=== PATIENT | female | born 1995 | race Caucasian/White ===

== ENCOUNTER 2018-08-19 11:39 | Inpatient (IN) | payer BC ==
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
[2018-08-19 12:18] LABS: PLATELET COUNT 265 10^3/uL (150-400)
--- NOTE | 2018-08-19 15:04 | PDCONSULT ---
Photographic Equipment Technician Note: MEDICINE H&P NOTE Chief Complaint: suicidal ideation History of Present Illness: 22yo F with bipolar disorder presented to ED with suicidal ideation. She is having thoughts of cutting herself. She has become more depressed after tapering off her cymbalta. She is also on lithium and lamictal. No hallucinations. She reports being prescribed amoxicillin for ? right ear vs sinus infection 6-7 days ago, which she has been taking. She was also having mild productive cough and sore throat but these symptoms have improved. No fevers or chills. Otherwise, she is feeling well with no shortness of breath. In the ED, she was placed on an M1 hold. Past Medical History: bipolar disorder, polysubstance use Past Surgical History: none Medications: Please refer to EMR. Allergies: none Social History: Previous binge alcohol use and cocaine use, none in 5 weeks. Denies IVDU. Family History: non-pertinent ROS: 10 point review of systems was negative except per HPI. Vitals: Reviewed, all within normal limits. Physical Exam: General - no acute distress; HEENT - anicteric sclera, throat without erythema or exudate; unable to visualize tympanic membranes (otoscope not available); Neck - no lymphadenopathy; CV - rrr without m/r/g; Lungs - ctab without wheezing; Abdomen - soft and nontender; Skin - no rashes; MSK - no joint effusions; Neuro - no focal neurologic deficits; Psych - appears upset. Labs: CBC and BMP within normal limits. Ethyl alcohol undetectable. Negative utox. Negative salicylate and tylenol levels. [place] level undetectable. Assessment/Plan: 22yo F with bipolar here with suicidal ideation. She is currently finishing up a course of antibiotics for otitis media. 1. Right otitis media: She has complete 6 days of amoxicillin. She reports being prescribed a 10 day course. It's reasonable to complete this with 875mg amoxicillin Q12H (finish on 08/22). 2. Suicidal ideation: On M1 hold. 3. Bipolar disorder: Reportedly on lithium but levels undetectable. Management per psychiatry team. She is medically stable for admission to [facility]. Please page internal medicine with questions.
--- NOTE | 2018-08-19 16:52 | ASMTTCLDSP ---
TLC Discharge Disposition Disposition: Answers: Admit Disposition Notes: Notes: In consultation with ED Physician, Dr Augusot Knowles and On-call clinician, Dimitri Toussaint APN both concurred pt meets 27-65 criteria for psychiatric hospitalization as pt does appear to be an imminent risk of harm to self due to a mental illness condition Discharge Concerns/Recommendations: Notes: Admit to [facility] Was patient given the Answers: Yes Inpatient Behavioral Health Prohibited Belongings List while in the ED? For inpatient Dimitri Toussaint admission, the following psychiatrist agreed to accept patient for admission to Behavioral Health ([facility]): Type of Hold: Answers: M1/72-hour Hold Date Signed: 08/19/2018 04:51 PM Electronically Signed By:Brina Mcgee
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
[2018-08-19] MEDS ORDERED: LORazepam 0.5 MG TAB PO PRN (18:49)
[2018-08-19] MEDS ORDERED: MAG HYDROX/AL HYDROX/SIMETH 30 ML UDCUP PO PRN (18:49)
[2018-08-19] MEDS ORDERED: MAGNESIUM HYDROXIDE 30 ML UDCUP PO PRN (18:49)
[2018-08-19] MEDS ORDERED: NICOTINE POLACRILEX 2 MG GUM B PRN (18:49)
[2018-08-19] MEDS ORDERED: OLANZapine 5 MG TAB PO PRN (18:50)
[2018-08-19] MEDS ORDERED: DULoxetine 20 MG CAP PO ONE (19:30)
[2018-08-19] MEDS ORDERED: GABAPENTIN 300 MG CAP PO PRN (20:17)
[2018-08-19] MEDS: AMOXICILLIN/CLAVULANATE POT 875/125 MG TAB PO SCH (20:21)
[2018-08-19] MEDS ORDERED: DULoxetine 30 MG CAP PO ONE (20:30)
[2018-08-19] MEDS: MELATONIN 3 MG TAB PO PRN (21:13)
[2018-08-20] MEDS: lamoTRIgine 100 MG TAB PO SCH (08:22)
[2018-08-20] MEDS: AMOXICILLIN/CLAVULANATE POT 875/125 MG TAB PO SCH ×2 (08:23→20:20)
--- NOTE | 2018-08-20 10:02 | ASMTBHMTP ---
Master Treatment Plan Master Treatment Plan Answers: Mood Instability with for: Psychosis Date: 08/20/2018 Diagnosis on Admission: Unspecified Bipolar and Related Disorder 296.80 Expected length of stay: 3-5 Days Reason for admission: Notes: Per [facility] Evaluation - Pt. is a 22 year old, single, female who self presented to the [facility] ED requesting help due to increased symptoms of depression with suicidal thoughts. Pt. had expressed upon presenting to the ED that she has no intent of hurting herself. Pt. also reported she is recently tapering off Cymbalta and is on a low dose of [place]. Pt. presented as alert, oriented and cooperative with no recent mental illness per Physician report. Pt's utox was negative for all substances. Pt's [place] level was 0.2. 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 Pt. had told linux admin she was feeling suicidal, scared and unsafe. Pt. said she has been sober for about 1 month. Her primary drug of choice is alcohol. Pt. stated she has used meth and cocaine in the past. Not regular use of cocaine but hx of periodic binges. Last cocaine use reported was 1 month ago. Last meth use was 3 years ago per pt's report. Pt. described wide mood spring, loss of control and not feeling safe. Patient's stated presenting problems: Notes: Pt. stated she is currently coming off of Cymbalta, and reported having "lots of side effects". Pt. stated she is feeling good today. Patient's goals for treatment: Notes: Pt. stated her goal is to discharge as soon as she is able to Patient's strengths: Notes: Pt. stated she "thinks a lot, an advocate for herself, lots of coping skills, nice and friendly". Identify supports outside of hospital: Notes: Pt. reports her family, who live in [place], and her best friend here in [place]. Pt. shared she also has support through AA. Discharge criteria: Notes: Patient will demonstrate more stable mood by discharge. Initial disposition plan/considerations: Notes: Pt. plans to return to home in [place] and continue working Master Treatment Plan Required Signatures Psychiatrist signature: Answers: Psychiatrist: RN on-shift signature: Answers: RN: Patient signature: Answers: Patient: Date Signed: 08/20/2018 10:01 AM Electronically Signed By:Edilia Hernandez
[2018-08-20] MEDS: ACETAMINOPHEN 325 MG TAB PO PRN ×2 (13:19→20:20)
--- NOTE | 2018-08-20 14:16 | ASMTCMCOM ---
CM Note CM Note Notes: Pt and CC completed MTP, signed and placed in chart. Pt. stated she "never went off my meds". Pt. stated she has been communicating all of her symptoms to her parents. Pt. stated she would like to discharge today. Pt. stated she "need to apply for a job at [employer]" and stated she has an art class on Wednesday at [employer]. Pt. stated she has an appointment with her psychiatrists on Wednesday08/22/18 at 6:00pm. Pt. stated she does not have a therapist. Pt. stated she has been in recovery for a while, but has been sober the past five weeks. Pt. stated she attends AA, but does not have a sponsor or a home group. Pt. stated she is sensitive to medications and knows which ones affect her negatively. Pt. denied any current legal issues. CC provided pt with an Alcoholics Anonymous book. Pt. stated her best friend can stay with her after she discharges. Pt. presents as alert, minimizing her symptoms, good eye contact, tangential, a bit pressured speech, guarded and cooperative. Staff report pt. sleeping 8.5 hours and being medication compliant Date Signed: 08/20/2018 02:15 PM Electronically Signed By:Edilia Hernandez
--- NOTE | 2018-08-20 15:21 | ASMTBHFAM ---
Notes Note: Notes: CC reached out to pt's mother, Padmaja ([phone]) per MD. [facility] asked if [facility] is in network with pt's insurance. MOC stated pt. has been "trying to go off Cymbalta finally", adding pt has "had a rough times on that". MOC stated pt was "not fine" a "couple night ago". MOC stated pt. called her from the ER, adding pt stated she "felt she was blacking out". MOC stated she encouraged pt. to contact her psychiatrist on an emergency basis, but stated pt. wanted to push through to get off her medication. MOC stated she is willing to travel to [place] if necessary. CC provided [facility] with general information about the unit and procedures. Date Signed: 08/20/2018 03:20 PM Electronically Signed By:Edilia Hernandez
[2018-08-20] MEDS ORDERED: LITHIUM CARBONATE 300 MG TAB PO ONE (15:54)
[2018-08-20] MEDS: MELATONIN 3 MG TAB PO PRN (20:20)
[2018-08-20] MEDS ORDERED: LITHIUM CARBONATE 300 MG TAB PO SCH (21:00)
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
[2018-08-21 06:54] VITALS: BP 104/64
[2018-08-21] MEDS: AMOXICILLIN/CLAVULANATE POT 875/125 MG TAB PO SCH (09:30)
[2018-08-21] MEDS: lamoTRIgine 100 MG TAB PO SCH (09:31)
--- NOTE | 2018-08-21 14:57 | ASMTCMCOM ---
CM Note CM Note Notes: Pt. approached CC to ask to be seen by the MD. Pt. stated MD stated pt may be able to discharge today. Pt. stated she is "getting emotional" and "trying to have a stronger voice than yesterday". CC informed pt the MD is currently meeting with another pt and she would have to wait. CC also made pt's RN aware. Pt. presents as alert, irritated, good eye contact, and mostly cooperative. Staff report pt. sleeping 12 hours and being medication compliant. CC to confirm pt's appointment with Dr. Gil on 08/22/18 at 6pm Date Signed: 08/21/2018 02:57 PM Electronically Signed By:Edilia Hernandez
--- NOTE | 2018-08-21 15:21 | SOAPPROG ---
ADAM Progress Note Assessment/Plan: Assessment: Plan: 08/21/18 16:02 Requests additional [place] 150mg since she tolerated 150mg last night and felt more clear this AM and no s/e, so she doesn't feel afraid of it anymore Denies EtOH or subst cravings, and reports attending AA 4x/wk Would like Cymbalta 30mg Rx so taper can be more gradual, has only 20mg tabs at home. Discussed t1/2 of 12hr. Pt feels comfortable to taper down by 1 week increments Will discuss scheduled changes to Lamictal with outpatient psychiatrist, but cont 100mg qd for now. Has 25mg she has uses once daily as prn. Agrees she would benefit from resuming therapy, states she was thinking about doing so and is motivated to re-establish Okay to terminate M-1. consistently denied any SI/HI and is not felt to be gravely disabled Limit caffeine, try 1/2-caf. States she may need to treat caffeine as 12-step like she does EtOH. Meds called in to [facility] [place] [phone] Objective: Vital Signs Temp Pulse Resp BP Pulse Ox 36.5 C 84 14 104/64 96 08/21/18 06:00 08/21/18 06:00 08/21/18 06:00 08/21/18 06:00 08/21/18 06:00 - Pending Discharge Pending Discharge Within 24 Hours: Yes Pending Discharge Date: 08/22/18 Pending Discharge Time: 11:00 ICD10 Worksheet Patient Problems: Problems Problem Status Onset Pituitary microadenoma Acute
[2018-08-21] MEDS ORDERED: DULoxetine 30 MG CAP PO SCH ×2 (16:00→21:00)
[2018-08-21] MEDS ORDERED: LITHIUM CARBONATE 300 MG TAB PO ONE ×2 (16:19→16:45)
[2018-08-21] MEDS ORDERED: LITHIUM CARBONATE 300 MG TAB PO SCH (21:00)
== END 2018-08-21 16:57 | disposition home or self-care (01) | DRG 885 ==
LOC: EEVIPCON 11:39 → BBEH 16:55
PROVIDERS: ADMIT Registered Nurse; ATTEND Registered Nurse
DX: F31.9 Bipolar disorder, unspecified (principal); H66.91 Otitis media, unspecified, right ear; F41.8 Other specified anxiety disorders; F43.10 Post-traumatic stress disorder, unspecified
CPT/HCPCS: 80305; G0480